=== PATIENT | male | born 1960 | race Two or more races ===

== ENCOUNTER → 2020-03-17 | Outpatient (CLI) | payer OTHER ==
--- NOTE | 2020-04-14 10:54 | REP ---
LEFT FOOT SERIES: HISTORY: Pain. TECHNIQUE: AP, lateral, bilateral oblique views of the left foot. FINDINGS: The lateral view demonstrates small calcaneal heel spur. No acute fracture or dislocation. Structures, joint spaces and surrounding soft tissues are otherwise normal. IMPRESSION: Age appropriate examination. Small calcaneal heel spur. MTDD
== END ==
LOC: M RAD 08:42
PROVIDERS: ATTEND Surgery
DX: M77.32 Calcaneal spur, left foot (principal)

== ENCOUNTER → 2020-07-11 | Outpatient (REF) | payer OTHER ==
[2020-07-11 10:49] LABS: APPEARANCE, URINE CLEAR (CLEAR); BACTERIA, URINE AUTO NEGATIVE (NEGATIVE); BILIRUBIN, URINE AUTO NEGATIVE (NEGATIVE); BLOOD, URINE BLOOD 2+ (NEGATIVE); COLOR, URINE YELLOW (YELLOW); GLUCOSE, URINE (UA) AUTO NEGATIVE (NEGATIVE); KETONE, URINE AUTO NEGATIVE (NEGATIVE); LEUKOCYTE ESTERASE, URINE AUTO NEGATIVE (NEGATIVE); MUCUS, URINE SMALL (NEGATIVE); NITRITE, URINE AUTO NEGATIVE (NEGATIVE); PROTEIN, URINE AUTO NEGATIVE (NEGATIVE); RBC, URINE AUTO 12 /HPF (0-3); SPECIFIC GRAVITY URINE AUTO 1.021 (1.002-1.035); SQUAMOUS EPITHELIAL CELL UR AU 0 /HPF (0-6); UROBILINOGEN, URINE AUTO 0.2 mg/dL (0.0-2.0); WBC, URINE AUTO 0 /HPF (0-3)
== END ==
LOC: M LAB REF 09:00
PROVIDERS: ATTEND Surgery
DX: M54.5 Low back pain (principal); R10.9 Unspecified abdominal pain